=== PATIENT | female | born 1990 | race Caucasian/White ===

== ENCOUNTER 2021-09-23 21:51 | Emergency (ER) | payer BC ==
[~2021-09-23] VITALS: Ht 157.5 cm; Wt 70.5 kg
[2021-09-23 22:01] VITALS: TEMP 98.5
[2021-09-23 23:07] VITALS: BP 116/81; PULSE 81
== END 2021-09-23 23:07 | disposition home or self-care (01) ==
LOC: COL.ER 21:51
DX: R07.0 Pain in throat (principal)